=== PATIENT | male | born 1955 | race Caucasian/White ===

== ENCOUNTER → 2023-12-07 06:59 | Outpatient (REF) | payer MEDICARE, BC, SELFPAY | LOC: MRI 3T 06:59 | PROVIDERS: ATTENDING PHYSICIAN Physician Assistant Medical; FAMILY PHYSICIAN Family Medicine | DX: M25.512 Pain in left shoulder (principal) | CPT/HCPCS: 73221 ==

== ENCOUNTER → 2024-01-01 07:23 | Outpatient (REF) | payer MEDICARE, BC, SELFPAY | LOC: HWRAD 07:23 | PROVIDERS: ATTENDING PHYSICIAN Family Medicine | DX: J98.59 Other diseases of mediastinum, not elsewhere classified (principal) | CPT/HCPCS: 76536 ==

== ENCOUNTER 2024-01-23 11:13 | Emergency (ER) | payer MEDICARE, BC, SELFPAY ==
[2024-01-23 11:21] VITALS: BP 181/99
[2024-01-23 11:47] LABS: % Basophils 0.4 % (0-2); % Eosinophils 3.6 % (0-6); % Immature Granulocytes 0.7 % (0-0.5); % Lymphocytes 29.3 % (20.5-51.1); % Monocytes 9.7 % (1.7-9.3); % Neutrophils 56.3 % (42.2-75.2); Absolute Eosinophils 0.2 10^3/uL (0-0.7); Absolute Lymphocytes 1.6 10^3/uL (1.2-3.4); Absolute Monocytes 0.5 10^3/uL (0.1-0.6); Absolute Neutrophils 3.1 10^3/uL (1.4-6.5); Hematocrit 38.8 % (39.0-52.0); Mean Corp Hgb Conc. 36.1 g/dL (33.0-37.0); Mean Corpuscular Hgb 33.8 pg (27.0-31.0); Mean Corpuscular Volume 93.7 fL (80.0-94.0); Mean Platelet Volume 9.5 fL (7.4-10.4); Nucleated Red Blood Cells % 0 % (-); Platelet Count 145 10^3/uL (130-400); Red Blood Cell Count 4.14 10^6/uL (4.70-6.10); Red Cell Dist. Width 13.3 % (11.5-14.5); White Blood Cell Count 5.6 10^3/uL (4.8-10.8)
[2024-01-23 11:54] LABS: ALT (SGPT) 23 U/L (0-50); AST (SGOT) 30 U/L (17-59); Albumin 4.4 g/dl (3.5-5.0); Alkaline Phosphatase 94 U/L (38-126); Blood Urea Nitrogen 16 mg/dl (9-20); Calcium 9.7 mg/dl (8.4-10.2); Carbon Dioxide 23 mmol/L (22-30); Chloride 109 mmol/L (98-107); Glucose 89 mg/dl (70-99); Potassium 4.1 mmol/L (3.5-5.1); Sodium 142 mmol/L (135-145); Total Bilirubin 0.5 mg/dl (0.2-1.3); Total Protein 6.8 g/dl (6.3-8.2); eGFR > 60.00
[2024-01-23 12:06] VITALS: BP 193/97
[2024-01-23 12:06] LABS: Troponin I < 0.012 ng/ml
[2024-01-23 12:13] VITALS: BP 177/106
[2024-01-23 13:00] VITALS: BP 184/107
[2024-01-23 13:15] VITALS: BP 176/103
[2024-01-23 13:16] VITALS: BMI 33.0
--- NOTE | 2024-01-23 13:36 | ED.GENMED ---
History of Present Illness
<Hanna Jenkins MD, Resident - Last Filed: 01/23/24 15:33>
General
Chief Complaint: Chest Pain
Source: patient
Time Seen by Provider: 01/23/24 12:01
History of Present Illness
History of Present Illness:
68-year-old male with history of hypertension, hyperlipidemia, GERD presents to the ED with chest pain and back pain on and off since 12/13. Pain is around the substernal area and last for a day or 2 and subsides on its own. Patient states that
this that now the pain is around 2/10, highest would be around 6 out of 10 enough to keep him up at night. Patient reports of indigestion which is ongoing along with intermittent chest pain. Last night he had a quesadilla for dinner and he
experienced chest discomfort at night and was unable to sleep thus prompted him to come to the ED. He typically does not notice pain during the day when he moves around and pain is mostly at night. He denies shortness of breath, palpitations,
headache, blurry vision, epigastric pain, nausea or vomiting.
Past History
<Hanna Jenkins MD, Resident - Last Filed: 01/23/24 15:33>
Past History
ED Past Medical History: COPD (Sleep apnea), GERD, HTN and Hypercholesterolemia
ED Past Surgical History: Orthopedic (Right shoulder surgery 2008) and Other (Hydrocele removal.)
Social History
Tobacco: Non-smoker
Alcohol: None
Personal:
Living: with family
Family History
Family History: CAD (Father had an PR in his 70s); Negative Early CAD or Sudden
Review of Systems
<Hanna Jenkins MD, Resident - Last Filed: 01/23/24 15:33>
Review of Systems
Cardiac: Reports chest pain
Musculoskeletal: Reports back pain
Phy Exam
<Hanna Jenkins MD, Resident - Last Filed: 01/23/24 15:33>
General Physical Exam
General Presentation: well appearing and no apparent distress
Cardiovascular Exam
Cardiovascular Exam: regular rate/rhythm, no edema and no murmur
Pulmonary Exam
Pulmonary Exam: lungs clear, no rales, no crackles, no rhonchi and no wheezing
Gastrointestinal Exam
Gastrointestinal Exam: normal bowel sounds, non tender, soft and non distended
Musculoskeletal Exam
Musculoskeletal Exam: other (no back tenderness )
Scores
<Hanna Jenkins MD, Resident - Last Filed: 01/23/24 15:33>
Heart Score for Chest Pain Patients
STEMI patient?: No
History: Slightly or Non-Suspicious
ECG: Normal
Age: >/= 65 years
Risk Factors: 1 or 2 Risk Factors
Troponin: </= Normal Limit
Heart Score for Chest Pain Patients: 3
Heart Score Risk: 2.5% MACE over next 6 weeks
<Janki Mcclain DO - Last Filed: 01/23/24 18:56>
Heart Score for Chest Pain Patients
Heart Score for Chest Pain Patients: 3
Heart Score Risk: 2.5% MACE over next 6 weeks
Course
<Hanna Jenkins MD, Resident - Last Filed: 01/23/24 15:33>
Orders/Labs/Results
Orders:
Orders
01/23/24 11:15
ECG [Electrocardiogram (*1)] Urgent
Reason for Study: Chest Pain
EKG- Treatment ONCE
01/23/24 11:30
Amylase Urgent
Comment: LIPASE & AMYLASE ADDED ON BY FLOOR 1:50PM 01-23-24
CMP [Comprehensive Metabolic Panel] Urgent
Complete Blood Count/With Diff Urgent
Lipase Urgent
TSH Urgent
Comment: ADD ON
Troponin I Urgent
01/23/24 12:02
Add On- LAB Urgent
Tests Added?: TSH
01/23/24 13:48
Add On- LAB Urgent
Tests Added?: lipase, amylase
01/23/24 13:57
Famotidine [Pepcid] 20 mg IV NOW STA
Mag Hydrox/Al Hydrox/Simeth [Maalox] 30 ml PO NOW STA
01/23/24 14:04
Famotidine [Pepcid] 20 mg PO NOW STA
01/23/24 14:09
CR Chest - 2 Views Urgent
Comment:
Reason For Exam: chest pain
Abnormal Lab Results
01/23/24
11:30
RBC 4.14 L 10^6/uL
(4.70-6.10)
Hct 38.8 L %
(39.0-52.0)
MCH 33.8 H pg
(27.0-31.0)
Immature Gran % 0.7 H %
(0-0.5)
Monocytes % 9.7 H %
(1.7-9.3)
Chloride 109 H mmol/L
(98-107)
01/23/24 11:30
01/23/24 11:30
Vital Signs
Initial and Last Documented VS:
Initial Vital Signs
Temp Pulse BP Pulse Ox
98 F 59 181/99 95
01/23/24 11:21 01/23/24 11:21 01/23/24 11:21 01/23/24 11:21
Last Documented Vital Signs
Temp Pulse Resp BP Pulse Ox
98 F 52 16 165/99 92
01/23/24 11:21 01/23/24 14:15 01/23/24 14:15 01/23/24 14:07 01/23/24 14:15
<Janki Mcclain, DO - Last Filed: 01/23/24 18:56>
Orders/Labs/Results
Orders:
Orders
01/23/24 11:15
ECG [Electrocardiogram (*1)] Urgent
Reason for Study: Chest Pain
EKG- Treatment ONCE
01/23/24 11:30
Amylase Urgent
Comment: LIPASE & AMYLASE ADDED ON BY FLOOR 1:50PM 01-23-24
CMP [Comprehensive Metabolic Panel] Urgent
Complete Blood Count/With Diff Urgent
Lipase Urgent
TSH Urgent
Comment: ADD ON
Troponin I Urgent
01/23/24 12:02
Add On- LAB Urgent
Tests Added?: TSH
01/23/24 13:48
Add On- LAB Urgent
Tests Added?: lipase, amylase
01/23/24 13:57
Famotidine [Pepcid] 20 mg IV NOW STA
Mag Hydrox/Al Hydrox/Simeth [Maalox] 30 ml PO NOW STA
01/23/24 14:04
Famotidine [Pepcid] 20 mg PO NOW STA
01/23/24 14:09
CR Chest - 2 Views Urgent
Comment:
Reason For Exam: chest pain
Abnormal Lab Results
01/23/24
11:30
RBC 4.14 L 10^6/uL
(4.70-6.10)
Hct 38.8 L %
(39.0-52.0)
MCH 33.8 H pg
(27.0-31.0)
Immature Gran % 0.7 H %
(0-0.5)
Monocytes % 9.7 H %
(1.7-9.3)
Chloride 109 H mmol/L
(98-107)
01/23/24 11:30
01/23/24 11:30
Vital Signs
Initial and Last Documented VS:
Initial Vital Signs
Temp Pulse BP Pulse Ox
98 F 59 181/99 95
01/23/24 11:21 01/23/24 11:21 01/23/24 11:21 01/23/24 11:21
Last Documented Vital Signs
Temp Pulse Resp BP Pulse Ox
98 F 52 16 165/99 92
01/23/24 11:21 01/23/24 14:15 01/23/24 14:15 01/23/24 14:07 01/23/24 14:15
<Hanna Jenkins MD, Resident - Last Filed: 01/23/24 15:33>
*Critical Care Note
Total Time (30-74mins, 75-104mins- exclusive of procedures): Not Applicable
<Hanna Jenkins MD, Resident - Last Filed: 01/23/24 15:33>
Update Note
Update Note:
68-year-old male presented to the ED with chest pain radiating to his back which has been ongoing intermittently for the past 6 weeks.
d/d
#1 CAD less likely
2. Acute pancreatitis
#3 GERD
4. Aortic dissection less likely
- EKG shows sinus bradycardia, no ST elevation, troponin normal r/o PR
- Amylase and lipase are normal ruling out pancreatitis
- PO Famotidine 20 mg and Maalox PO as patient reports more of epigastric discomfort which increased after dinner.
- CXR
IMPRESSION:
Linear and band shaped opacities within both lower lungs, stable, and compatible with linear atelectasis and/or scarring. No new parenchymal opacity. Cardiac silhouette and vascular markings appear within normal limits.
-Patient is hemodynamically stable and is okay to discharge. He denies any chest pain or shortness of breath advised to follow-up with his PCP. Return of symptoms then he should return to the ED immediately. Advised to take Pepcid and Maalox
which are available [id number].
ED Attending Note
<Hanna Jenkins MD, Resident - Last Filed: 01/23/24 15:33>
-
Portions of this chart may have been created with voice recognition software.� Occasional wrong word or��sound alike� substitutions may have occurred due to the inherent limitations of voice recognition software.
<Janki Mcclain DO - Last Filed: 01/23/24 18:56>
ED Attending Note
Patient seen and examined by attending physician: Yes
I performed a history and physical exam of patient and discussed management with resident, I reviewed resident's note and agree with documented findings and plan of care.: Yes
ED Attending Note:
68-year-old male with history of hypertension, hyperlipidemia, COPD presenting with nonexertional nonpleuritic chest tightness radiating around to his back for the past 1 month. Patient states that last night he ate quesadilla for dinner and
symptoms worsened throughout the entire night prior to ED arrival. Patient denies shortness of breath, abdominal pain, nausea, vomiting, cough, or lower extremity swelling. Patient states he took Tylenol with some relief last night. Patient
states this been happening for the past 1 month. Patient states that he seems to notice pain more at night when he is trying to sleep. Patient states he typically does not notice pain during the day. Heart RRR, lungs clear, abdomen soft
nondistended nontender. no LE edema bilaterally. no chest wall tenderness to palpation. Ddx includes GERD, pancreatitis, NSTEMI. Results reviewed, EKG shows sinus bradycardia at 57bpm withh NE 190 QTc 426 no acute ischemic changes. Lipase within
normal limits. Troponin within normal limits. Heart score 3. Given chest pain has been constant since last night, no indication for repeat troponin, low suspicion for ACS. On reevaluation, patient reports resolution of pain with Pepcid and Maalox.
Discussed results with patient at bedside stable for discharge home with PCP follow-up, suspect GERD.
Discharge Plan
Departure
Patient Disposition: Home (Routine Discharge)
Date of Disposition: 01/23/24
Time of Disposition: 15:32
Patient with high blood pressure during this ER visit?: No
Discharge Problem:
Chest pain
Prescriptions:
No Action
simvastatin 40 MG tablet
40 mg PO DAILY
aspirin [Aspirin Low-Strength] 81 MG tablet,chewable
81 mg PO DAILY
lisinopril 5 MG tablet
10 mg PO DAILY
fluticasone propionate [Flonase] 16 GM spray,suspension
2 puff intranasal DAILY
loratadine [Claritin] 10 MG tablet
10 mg PO DAILY
Advil
2 tab PO DAILY
Albuterol Inhaler
1 - 2 puff inhalation PRN PRN (Reason: COPD)
calcium carbonate [Antacid (calcium carbonate)] 500 MG tablet,chewable
2 - 3 mg PO Q4HPRN PRN (Reason: as needed)
Patient Comments:
sometimes replaces with tums with Rolaids
omeprazole magnesium [Prilosec OTC] 20 MG tablet,delayed release (DR/EC)
20 mg PO DAILY
Referrals:
John Rice MD [Family Provider] -
Interventions
Interventions:
*Risk Screen - Suicide Last Done: 01/23/24 13:20
*General Assessment Last Done: 01/23/24 13:20
*Neglect/Abuse Screening Last Done: 01/23/24 13:20
ED- Fall Risk Assessment Last Done: 01/23/24 12:10
*ED COVID-19 Vaccine History Last Done: 01/23/24 13:20
*Nursing Disposition Last Done: 01/23/24 15:44
ED- Cardiac Assessment Last Done: 01/23/24 12:10
Discharge Date and Time
Discharge Date/Time: 01/23/24 15:46
Print Language: [facility]
[2024-01-23 14:07] VITALS: BP 165/99
[2024-01-23] MEDS: MAALOX 30 ML PO (14:08)
[2024-01-23] MEDS: PEPCID 20 MG PO (14:08)
[2024-01-23 14:17] LABS: Amylase 65 U/L (30-110); Lipase 50 U/L (23-300)
[2024-01-23 16:21] LABS: TSH 1.84 uIU/ml (0.47-4.68)
== END 2024-01-23 15:46 | disposition home or self-care (01) ==
LOC: EMR 11:13
PROVIDERS: Emergency Medicine; EMERGENCY PHYSICIAN Emergency Medicine; FAMILY PHYSICIAN Family Medicine
DX: R07.89 Other chest pain (principal); M54.9 Dorsalgia, unspecified; K30 Functional dyspepsia; R10.13 Epigastric pain; I10 Essential (primary) hypertension; E78.00 Pure hypercholesterolemia, unspecified; J44.9 Chronic obstructive pulmonary disease, unspecified; G47.30 Sleep apnea, unspecified; K21.9 Gastro-esophageal reflux disease without esophagitis; Z91.048 Other nonmedicinal substance allergy status
CPT/HCPCS: 99283; 71046; 80053; 82150; 83690; 84443; 84484; 85025; 93005

== ENCOUNTER → 2024-03-06 08:24 | Outpatient (REF) | payer MEDICARE, BC, SELFPAY ==
[2024-03-06 08:41] VITALS: BP 185/94; BP_SYST 65
== END ==
LOC: RADI 08:24
PROVIDERS: ATTENDING PHYSICIAN Internal Medicine Endocrinology, Diabetes & Metabolism; FAMILY PHYSICIAN Family Medicine
DX: E04.2 Nontoxic multinodular goiter (principal)
CPT/HCPCS: 88173; 10005; 10006

== ENCOUNTER → 2024-12-24 14:46 | Outpatient (REF) | payer MEDICARE, BC, SELFPAY | LOC: HWRAD 14:46 | PROVIDERS: ATTENDING PHYSICIAN Internal Medicine Endocrinology, Diabetes & Metabolism; FAMILY PHYSICIAN Family Medicine | DX: E04.2 Nontoxic multinodular goiter (principal) | CPT/HCPCS: 76536 ==

== ENCOUNTER → 2025-05-04 10:02 | Outpatient (REF) | payer MEDICARE, BC, SELFPAY | LOC: MRI 3T 10:02 | PROVIDERS: ATTENDING PHYSICIAN Physician Assistant Surgical; FAMILY PHYSICIAN Family Medicine | DX: M25.512 Pain in left shoulder (principal) | CPT/HCPCS: 73221 ==